=== PATIENT | female | born 1960 | race African-American/Black ===

== ENCOUNTER 2025-06-16 12:42 | Emergency (ER) | payer MEDICARE ==
[~2025-06-16] VITALS: Ht 165.1 cm; Wt 108.0 kg
[2025-06-16 13:17] VITALS: O2SAT 100
[2025-06-16] MEDS ORDERED: CYCL10TA21 MT (16:06)
[2025-06-16] MEDS ORDERED: IBUP-2029 MT (16:06)
[2025-06-16 16:15] VITALS: TEMP 36.4; O2SAT 100
[2025-06-16 16:20] VITALS: BP 145/89; PULSE 61; RESP 19
[2025-06-16] MEDS: KETOROLAC 30MG/ML VIAL IM ONE (16:20)
== END 2025-06-16 16:21 | disposition home or self-care (01) ==
LOC: ER 12:42
DX: M25.551 Pain in right hip (principal); M25.552 Pain in left hip; I10 Essential (primary) hypertension; Z98.84 Bariatric surgery status
CPT/HCPCS: 99283; 73522; 96372; J1885